=== PATIENT | male | born 1970 | race Caucasian/White ===

== ENCOUNTER 2020-03-05 14:30 | Emergency (ER) | payer SELFPAY ==
[~2020-03-05] VITALS: Ht 180.3 cm; Wt 83.9 kg
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
[2020-03-05] MEDS ORDERED: TDAP [DIPH/PERTUSSIS/TET] 0.5 ML VIAL IM ONE ×2 (15:30→15:35)
[2020-03-05] MEDS ORDERED: MORPHINE SULFATE INJ 2 MG/ML DISP.SYRIN IV ONE (15:30)
[2020-03-05] MEDS ORDERED: MORPHINE SULFATE INJ 4 MG/ML DISP.SYRIN ONE (15:30)
--- NOTE | 2020-03-05 15:30 | NUR ---
SEEN AND EXAMINED BY .
--- NOTE | 2020-03-05 15:41 | NUR ---
AERONAUTICAL ENGINEERING TECHNOLOGIST AT BEDSIDE FOR XRAY.
--- NOTE | 2020-03-05 16:40 | NUR ---
SUTURING DONE BY
--- NOTE | 2020-03-05 16:55 | NUR ---
WOUND DRESSING DONE BY BUSINESS ANALYSIS CONSULTANT.
[2020-03-05 17:07] VITALS: BP 128/81
--- NOTE | 2020-03-05 17:07 | NUR ---
IV removed. Catheter intact and site benign. Pressure and 4x4 applied to site. No bleeding noted. Patient discharged to home in stable condition. Written and verbal after care instructions given. Patient verbalizes understanding of instruction.
== END 2020-03-05 17:08 | disposition home or self-care (01) ==
LOC: ER 14:32
DX: S81.811A Laceration without foreign body, right lower leg, initial encounter (principal); W01.0XXA Fall on same level from slipping, tripping and stumbling without subsequent striking against object, initial encounter; Y93.55 Activity, bike riding; Y92.488 Other paved roadways as the place of occurrence of the external cause; Y99.8 Other external cause status
CPT/HCPCS: 12004; 73590; 90471; 90715; 96374; 99284; A6403; J2270

== ENCOUNTER 2020-03-06 00:20 | Emergency (ER) | payer SELFPAY ==
[~2020-03-06] VITALS: Ht 172.7 cm; Wt 76.2 kg
[2020-03-06 00:45] VITALS: BP 133/75
[2020-03-06] MEDS ORDERED: oxyCODONE/APAP (5/325 MG) 1 UDTAB TABLET ONE (00:54)
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
--- NOTE | 2020-03-06 00:59 | NUR ---
Patient discharged to home in stable condition. Written and verbal after care instructions given. Patient verbalizes understanding of instruction.
[2020-03-06] MEDS ORDERED: oxyCODONE/APAP (5/325 MG) 1 UDTAB TABLET PO ONE (01:00)
--- NOTE | 2020-03-06 01:00 | NUR ---
PATIENT STATES HE WILL TRY OTHER PHARMACIES.
== END 2020-03-06 01:01 | disposition home or self-care (01) ==
LOC: ER 00:22
DX: S81.811D Laceration without foreign body, right lower leg, subsequent encounter (principal); Z76.0 Encounter for issue of repeat prescription; V49.49XD Driver injured in collision with other motor vehicles in traffic accident, subsequent encounter

== ENCOUNTER 2020-03-12 19:56 | Emergency (ER) | payer SELFPAY ==
[~2020-03-12] VITALS: Ht 180.3 cm; Wt 84.8 kg
[2020-03-12 20:05] VITALS: BP 126/75
== END 2020-03-12 20:25 | disposition home or self-care (01) ==
LOC: ER 19:59
DX: S81.811D Laceration without foreign body, right lower leg, subsequent encounter (principal); L08.9 Local infection of the skin and subcutaneous tissue, unspecified; X58.XXXD Exposure to other specified factors, subsequent encounter

== ENCOUNTER 2020-03-22 12:29 | Emergency (ER) | payer SELFPAY ==
[~2020-03-22] VITALS: Ht 180.3 cm; Wt 84.4 kg
[2020-03-22 12:36] VITALS: BP 124/72
--- NOTE | 2020-03-22 13:30 | NUR ---
Patient discharged to home in stable condition. Written and verbal after care instructions given. Patient verbalizes understanding of instruction. Pt ambulatory with a steady gait
== END 2020-03-22 14:09 | disposition home or self-care (01) ==
LOC: ER 12:29
DX: S81.811D Laceration without foreign body, right lower leg, subsequent encounter (principal); X58.XXXD Exposure to other specified factors, subsequent encounter

== ENCOUNTER 2020-04-07 00:31 | Emergency (ER) | payer SELFPAY ==
[~2020-04-07] VITALS: Ht 177.8 cm; Wt 77.6 kg
[2020-04-07 00:46] VITALS: BP 138/75
== END 2020-04-07 01:15 | disposition home or self-care (01) ==
LOC: ER 00:31
DX: L03.115 Cellulitis of right lower limb (principal)
CPT/HCPCS: 99283; A6403